=== PATIENT | male | born 1990 | race Two or more races ===

== ENCOUNTER 2022-04-17 01:22 | Emergency (ER) | payer SELFPAY ==
[~2022-04-17] VITALS: Ht 172.7 cm; Wt 68.0 kg
[2022-04-17] MEDS ORDERED: OLANZAPINE 10 MG VIAL IM ONE ×2 (01:48→02:15)
[2022-04-17] MEDS ORDERED: NALOXONE 2 MG/2 ML SYRINGE ONE (01:49)
[2022-04-17] MEDS ORDERED: LORAZEPAM 2 MG/1 ML VIAL ONE (01:51)
--- NOTE | 2022-04-17 02:00 | NUR ---
Patient agitated, not cooperative
[2022-04-17] MEDS ORDERED: NALOXONE HCL 0.4 MG/ML AMPUL IM ONE (02:15)
[2022-04-17] MEDS ORDERED: IV NORMAL SALINE 1000 ML BAG IV ONE (02:15)
[2022-04-17] MEDS ORDERED: LORAZEPAM 2 MG/1 ML VIAL IM ONE (02:15)
[2022-04-17 03:25] LABS: HEMATOCRIT 44.1 % (36.7-47.1); MEAN CORPUSCULAR HEMOGLOBIN 30.8 uug (23.8-33.4); MEAN CORPUSCULAR VOLUME 90.6 fL (73.0-96.2); PLATELET COUNT (AUTO) 331 K/uL (152-348)
[2022-04-17 03:40] LABS: ACETAMINOPHEN < 2.0 ug/mL (10-30); ALANINE AMINOTRANSFERASE 21 U/L (16-63); ALKALINE PHOSPHATASE 124 U/L (50-136); ASPARTATE AMINOTRANSFERASE 14 U/L (15-37); BILIRUBIN,DIRECT 0.1 mg/dL (0.0-0.2); BILIRUBIN,TOTAL 0.3 mg/dL (0.2-1.0); CARBON DIOXIDE 32 mmol/L (21-32); CHLORIDE 101 mmol/L (98-107); CREATININE 1.2 mg/dL (0.6-1.3); GLUCOSE 118 mg/dL (74-106); POTASSIUM 4.2 mmol/L (3.5-5.1); TOTAL PROTEIN, SERUM 8.1 g/dL (6.4-8.2); UREA NITROGEN, BLOOD 14 mg/dL (7-18)
[2022-04-17 03:44] LABS: ETHANOL < 3 MG/DL (0-0)
[2022-04-17 03:50] LABS: THYROID STIMULATING HORMONE 1.089 mIU/mL (0.358-3.740)
--- NOTE | 2022-04-17 07:20 | NUR ---
change of shift report to Erica MANUEL
--- NOTE | 2022-04-17 09:00 | NUR ---
[facility] consult requested for a patient in the emergency room for substance abuse resources. Patient is a 31-year-old male. Patient appears lethargic. Patient refused to answer [facility]CO assessment questions. FRANSISCO unable to ascertain patients primary contact worker or current address of the patient. FRANSISCO unable to ascertain history of substance abuse. Per MD report, patient overdosed on fentanyl. There is no toxicology report. FRANSISCO provided the patient with medication assisted treatment resources for [facility] [id number] [place] [id number] ([phone]), [facility] [address] [facility] [address] ([phone]), and [address] [address] ([phone]). Patient appears unmotivated for treatment. FRANSISCO placed a copy in the patients chart.
--- NOTE | 2022-04-17 09:30 | NUR ---
Gave pt his breakfast, finished meal 100%. Pt went back to sleep. Tried to wake the up for d/c, pt is lethargic.
--- NOTE | 2022-04-17 12:41 | NUR ---
PT WAS DISCHARGE; IV REMOVED AND DRESSING APPLIED. PT REFUSED TO SIGN ACI. ESCORTED OUT BY SECURITY HE KICKED THE ER MD AT BEDSIDE.
[2022-04-17 12:44] VITALS: BP 122/73
--- NOTE | 2022-04-17 12:45 | NUR ---
Pt was uncooperative and refused to sign discharge papers. Pt was stable, V/S are WNL. Escorted by security.
== END 2022-04-17 12:46 | disposition home or self-care (01) ==
LOC: ER 01:33
DX: T40.411A Poisoning by fentanyl or fentanyl analogs, accidental (unintentional), initial encounter (principal); R06.02 Shortness of breath; Y92.512 Supermarket, store or market as the place of occurrence of the external cause; F29 Unspecified psychosis not due to a substance or known physiological condition
CPT/HCPCS: 80076; 80048; 82009; 84443; 85025; 84484 ×2; 36415; 93005; 71045; 99285; 96360; 96372; 80299; 80320; J2060; J2310; J7040; A4663; G0480; J2358